=== PATIENT | male | born 1955 | race Caucasian/White ===

== ENCOUNTER 2023-05-05 04:33 | Day surgery (SDC) | payer BC ==
[2023-05-01 15:23] VITALS: BMI 27.8
[2023-05-05 08:42] VITALS: TEMP 98.2
[2023-05-05 09:14] VITALS: RESP 18
[2023-05-05 09:26] VITALS: BP 115/91; PULSE 75
== END 2023-05-05 09:27 | disposition home or self-care (01) ==
LOC: JASU-ENDO 04:33
PROVIDERS: ATTEND Internal Medicine Gastroenterology
PROC: 0DBM8ZX Excision of Descending Colon, Via Natural or Artificial Opening Endoscopic, Diagnostic (ICD-10-PCS; principal; 2023-05-05 08:00)
DX: Z12.11 Encounter for screening for malignant neoplasm of colon (principal); D12.4 Benign neoplasm of descending colon; K57.30 Diverticulosis of large intestine without perforation or abscess without bleeding; K64.8 Other hemorrhoids
CPT/HCPCS: 82962; 88305-TC